=== PATIENT | female | born 2005 | race Asian ===

== ENCOUNTER 2024-10-05 13:50 | Emergency (ER) | payer OTHER, SELFPAY ==
[2024-10-05 14:13] VITALS: BP 109/62; PULSE 80; RESP 18; TEMP 37.1; O2SAT 98; BMI 19.8
--- NOTE | 2024-10-05 14:15 | CRLHL7_ITS ---
For Patients: As a result of the Cures Act, medical imaging exams and procedure reports are released immediately into your electronic medical record. You may view this report before your referring provider. If you have questions, please contact your health care provider. Indication: Trauma. Technique: Right foot 3 views. Comparison: None. Findings: Bones: No acute fracture or dislocation.. Joint spaces: Unremarkable. Soft tissues: Moderate soft tissue swelling along the dorsal aspect of the midfoot. Impression: No acute fracture or dislocation. Moderate soft tissue swelling along the dorsal aspect of the midfoot. Dictated by Clara Miller MD @ 10/05/2024 2:36:32 PM (Electronically Signed)
--- NOTE | 2024-10-05 14:54 | ED.LOWEXIN ---
HPI - Extremity Injury (Lower) General Chief Complaint: Extremity Pain/Injury, Lower Stated Complaint: Fell down stairs, R foot injury Time Seen by Provider: 10/05/24 13:53 History of Present Illness HPI Narrative: This 19-year-old female comes in with an injury to her right foot. She missed a step when going down stairs and injured her foot. She does not report any other injury. She has swelling over the dorsal aspect of the lateral part of her right foot. She does not report any pain with her ankle joint specifically and has normal range of motion of her ankle without discomfort. Related Data Home Medications ?Medication ?Instructions ?Recorded ?Confirmed No Known Home Medications 10/05/24 10/05/24 Allergies Allergy/AdvReac Type Severity Reaction Status Date / Time vancomycin AdvReac Severe Verified 10/05/24 14:13 Review of Systems Status of ROS: Reports: 10 or more systems reviewed and unremarkable except as noted in History and below Narrative: Constitutional: No fevers, no weight gain or loss. Eyes: No discharge. No vision changes. HENT: No congestion, no sore throat, no ear pain. Cardiovascular: No chest pain, no palpitations. Respiratory: No shortness of breath, no wheezes, no cough. Gastrointestinal: No abdominal pain, no vomiting, no diarrhea. Genitourinary: No dysuria, no hematuria. Musculoskeletal: Normal range of motion. Skin: No rashes, no pruritis. Neurological: No dizziness, weakness, sensory change, speech change. Endo/Heme/Allergies: No bruising or bleeding. No polydipsia. Pysch: no suicidality, no anxiety, no insomnia. All other systems reviewed and are negative. Exam Narrative: Exam Narrative: Constitutional: Well-developed, well-nourished, no acute distress. HEENT: Normocephalic, atraumatic. Neck: Normal range of motion. Nontender. Supple. Heart: Regular. No murmurs. Normal rate. Intact distal pulses. Lungs: Clear to auscultation. No chest discomfort. No wheezes, rhonchi, or rales. Abdomen: Normal bowel sounds. Nontender. No rebound tenderness. Genitalia: Deferred. Back: No midline tenderness. Normal range of motion. Extremities: Normal range of motion. Swelling and bruising over the dorsal aspect of the lateral component of her right foot near the 5th metatarsal. Skin: Intact. No rash. Warm. No erythema or pallor. Neurologic: No altered sensation. No weakness. Alert and oriented. Psychiatric: No suicidality. No anxiety or depression. No insomnia. Nursing notes and vitals signs are reviewed. Const: Vital Signs, click to edit/add: Vital Signs - 24 hr 10/05/24 14:13 Temperature 98.8 F Pulse Rate [Pulse Oximeter] 80 Respiratory Rate 18 Blood Pressure [Ri ght Upper Arm] 109/62 Pulse Oximetry 98 Oxygen Delivery Me thod Room Air Course Vital Signs Vital signs: Initial Vital Signs Temperature 98.8 F 10/05/24 14:13 Temperature Source Temporal Artery Scan 10/05/24 14:13 Pulse Rate 80 10/05/24 14:13 Respiratory Rate 18 10/05/24 14:13 Blood Pressure 109/62 10/05/24 14:13 Blood Pressure Mean 77 10/05/24 14:13 Pulse Oximetry 98 10/05/24 14:13 Oxygen Delivery Method Room Air 10/05/24 14:13 Vital Signs Temperature 98.8 F 10/05/24 14:13 Pulse Rate 80 10/05/24 14:13 Respiratory Rate 18 10/05/24 14:13 Blood Pressure 109/62 10/05/24 14:13 Pulse Oximetry 98 10/05/24 14:13 Oxygen Delivery Method Room Air 10/05/24 14:13 Temperature 98.8 F 10/05/24 14:13 Pulse Rate 80 10/05/24 14:13 Respiratory Rate 18 10/05/24 14:13 Blood Pressure 109/62 10/05/24 14:13 Pulse Oximetry 98 10/05/24 14:13 Oxygen Delivery Method Room Air 10/05/24 14:13 MDM - Extremity Injury (Lower) MDM Narrative Medical decision making narrative: This patient comes in with an injury to her right foot as described above. X-ray imaging by my review and according to radiology report shows no evidence of fracture. She does have some bruising overlying the base of the 4th and the 5th metatarsals of her right foot. Her ankle joint appears normal without any symptoms of injury. She was able to ambulate on this foot after the initial injury but as time elapsed she had more discomfort. She did receive an Shiraz wrap here and was fitted for crutches. She is encouraged to increase activity as tolerated and use [id number] medicines as needed and directed. Imaging Data XR R foot: Radiologist's impression: Swelling and bruising over the dorsal aspect of the lateral component of her right foot near the 5th metatarsal. Discharge Plan Discharge Clinical Impression: Injury of foot, right Patient Disposition: Home, Self-Care Condition: Stable Additional Instructions: use crutches as needed for ambulating. Use [id number] medicines as needed and directed also. Follow up with MD return if worsening. Prescriptions: No Action No Known Home Medications Stand Alone Forms: [employer] Info Instructions
--- OUTSIDE RECORDS SUMMARY | 2024-10-05 15:03 | XMS_ITS | Encounter Summary ---
Author Organization [facility] Address [address] [place] [address] Care Team Providers Care House Mover Name Role Phone Kimberly Cleveland M.D. Primary Care Provider [phone] Encounter Details Date Type Department Care Team (Late st Contact Info) Description 07/16/2012 Historical Ophthalmology RST OPH Carter Crowe O.D. 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 - 07/16/2012 4:15 PM CST Eye General CHIEF COMPLAINT failed school screening HISTORY OF PRESENT ILLNESS 20/50, 20/30. otherwise normal. IMPRESSION / REPORT / PLAN #1 mild refractive error srx 1 year / prn DIAGNOSIS #1 mild refractive error CDM Reports - EYEGEN Id: [id number] Status: Fnl documented in this encounter Plan of Treatment Not on file documented as of this encounter Visit Diagnoses Not on filedocumented in this encounter Care Teams House Mover Relationship Specialty Start Date End Date Kimberly Cleveland M.D. [address] [place] [address] PCP - General 08/11/20 documented as of this encounter
--- OUTSIDE RECORDS SUMMARY | 2024-10-05 15:03 | XMS_ITS | Clinical Summary ---
Author Organization [facility] Address [address] [place] [id number] Care Team Providers Care Physical Biochemist Name Role Phone Kimberly Cleveland M.D. Primary Care Provider Source Comments Patient records contain information from all sites at [facility]. For routine questions regarding patient records, call [phone] during business hours, M-F 8:00 AM - 5:00 PM Central Time. Record requests for emergency care only can be directed to [phone] at any time.[facility] Allergies Active Allergy Reactions Criticality Noted Date Comments Vancomycin Vancomycin Infusion Reaction Medium 03/14/2018 Requires premedication with Diphenhydramine and run Vancomycin over 2 hours Medications * This document contains information received from the source organization and may not represent a complete record from that organization. multivitamin tablet Take 1 tablet by mouth daily. Active ibuprofen (ADVIL,MOTRIN) 400 mg tablet Take 1 tablet (400 mg total) by mouth every 6 (six) hours as needed for moderate pain or score 4-6 of 10. 50 tablet 1 8 Active triamcinolone (KENALOG) 0.1 % cream Apply 1 application topically 2 (two) times a day as needed (eczema). 30 g 3 9 Active lactase (LACTAID ORAL) Take 1 capsule by mouth as needed. 1 pill as needed with meals that contain dairy Active adapalene (Differin) 0.1 % cream Apply 1 application topically at bedtime. Active levonorgestreL (Mirena) 20 mcg/24 hours (8 yrs) 52 mg IUD 1 Intra Uterine Device (1 each total) by intrauterine route continuously. Inserted 08/09/2022. 1 each 2 Active Active Problems Problem Noted Date Diagnosed Date Hidradenitis Suppurativa 03/13/2018 Fracture Femur Shaft Closed Subsequent Left 12/17 Fracture Femur Shaft Closed Initial Left 018 Resolved Problems Problem Noted Date Diagnosed Date Resolved Date Folliculitis 03/20/2018 03/20/2018 Immunizations Immunization Administration Dates Next Due 9vHPV 12/27/2016,06/03/2015,03/30/2015 DTaP (Daptacel) 01/25/2009 DTaP (Infanrix, [employer]) 01/12/2005,,01/14/2004,2003 HepA Pediatric/Adolescent 03/09/2022,04/07/2021 HepB, Unspecified 01/14/2004,2003 Hib, Unspecified 07/31/2004,2003 Hib-HepB 11/17/2004 IPV 01/25/2009, 5,01/14/2004,2003 Influenza, Injectable, Mdck, Preservative Free, Quadrivalent 04/19/2024 MCV4 (Menactra)(Discontinued) 03/30/2020 MCV4, Unspecified 03/30/2015 MMR 01/25/2009,07/31/2004 MenB (BEXSERO) 03/30/2020(Deferred: Parental de cision) PCV7 (discontinued) 01/12/2005,11/17/2004,2003 SARS-COV-2 (COVID-19) - MODERNA(Discontinued) 05/20/2024 SARS-COV-2 (COVID-19) - PFIZ ER (Discontinued)(12 years or older) 08/04/2021,11/17/2020,10/27/2020 SARS-COV-2 (COVID-19) - PFIZ ER Fall Seasonal (12 YEARS OR OLDER) 05/22/2023 Tdap 03/30/2015 OSIEL 01/25/2009,07/31/2004 influenza trivalent LAIV (Na jhon) (2 years through 49 years) 05/31/2009 influenza trivalent vaccine (6 months and older)(PF) 05/19/2013,2012,06/27/2011,2010,05/25/2010 influenza vaccine quad (FLUZONE/FLUARIX) (6 months and older)(PF) 05/22/2023,05/31/2022,05/17/2021,2019,05/13/2019,05/21/2018,05/20/2017,1 ,06/03/2015,05/18/2014 Family History Medical History Relation Name Comments Autism spectrum disorder Brother Relation Name Status Comments Brother Social History Tobacco Use Types Packs/Day Years Used Date Smoking Tobacco: Never Passive Smoke Exposure: Never Smokeless Tobacco: Never Alcohol Use Standard Drinks/Week Comments No 0 (1 standard drink = 0.6 oz pur e alcohol) [facility] [employer] Answer Date Recorded In the past 12 months has [employer], [employer], or water Conductor threatened to shut off services in your home? No 04/12/2024 Humiliation, Afraid, Rape, and Kick questionnair e Answer Date Recorded Within the last year, have y ou been afraid of your partner or ex-partner? No 03/08/2022 Within the last year, have y ou been humiliated or emotionally abused in other ways by your partner or ex-partner? No Within the last year, have y ou been kicked, hit, slapped, or otherwise physically hurt by your partner or ex-partner? No 03/08/2022 Within the last year, have y ou been raped or forced to have any kind of sexual activity by your partner or ex-partner? No 03/08/2022 Social Connection and Isolation Panel [NHANES] A nswer Date Recorded In a typical week, how many times do you talk on the phone with family, friends, or neighbors? Twice a week 03/08/2022 How often do you get together with friends or re latives? Once a week 03/08/2022 How often do you attend sikh or hinduism serv ices? Never 03/08/2022 Do you belong to any clubs o r organizations such as sikh groups, unions, fraternal or athletic groups, or school groups? No 03/08/2022 How often do you attend meet ings of the clubs or organizations you belong to? Never 03/08/2022 Are you , , di vorced, , never , or living with a partner? Never 03/08/2022 AUDIT-C Answer Date Recorded Q1: How often do you have a drink containing alc ohol? Never 03/08/2022 Average Number of Drinks Not on file 022 Frequency of Binge Drinking Not on file 02/17 Overall Financial Resource Strain (CARDIA) Answe r Date Recorded How hard is it for you to pa y for the very basics like food, housing, medical care, and heating? Not very hard 03/08/2022 PHQ-2 Answer Date Recorded PHQ-2 Score 1 06/02/2024 [facility] - Occupational Stress Questionnaire Answer Date Recorded Do you feel stress - tense, restless, nervous, or anxious, or unable to sleep at night because your mind is troubled all the time - these days? To some extent 03/08/2022 Exercise Vital Sign Answer Date Recorde d On average, how many days pe r week do you engage in moderate to strenuous exercise (like a brisk walk)? 5 days 04/12/2024 On average, how many minutes do you engage in exercise at this level? 90 min 04/12/2024 Hunger Vital Sign Answer Date Recorded Within the past 12 months, y ou worried that your food would run out before you got the money to buy more. Never true 04/12/20 24 Within the past 12 months, t he food you bought just didn't last and you didn't have money to get more. Never true 04/12/2024 PRAPARE - Transportation Answer Date Re corded In the past 12 months, has l ack of transportation kept you from medical appointments or from getting medications? No 03/20 In the past 12 months, has l ack of transportation kept you from meetings, work, or from getting things needed for daily living? No 04/12/2024 Depression Answer Date Recor ded PHQ-9 Total Score (max 27) 2 06/02 Nutrition Answer Date Recorded On average, how many serving s of fruits and vegetables do you eat per day (serving size is equal to 1 cup or approximately the size of a tennis ball)? 3-5 04/12/2024 Dental Answer Date Recorded Dental: Regular Dentist Yes 03/08/20 Employment Answer Date Recorded Employment status Employed and actively working without restrictions 04/12/2024 Housing Stability Answer Date Recorded What is your living situation today? I have a [facility] place to live 04/12/2024 Education Answer Date Recorded What is the highest level of school you have completed or the highest degree you have received? 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 Gender Identity Female 03/08/2022 11:22 PM CDT Sexual Orientation Straight 03/08/2022 11 :22 PM CDT Last Filed Vital Signs Vital Sign Reading Time Taken Comments Blood Pressure 109/71 06/02/2024 11:20 AM CDT Pulse 91 06/02/2024 11:20 AM CDT Temperature 37 C (98.6 F) 03/14/2018 9:00 AM CDT Respiratory Rate 16 03/14/2018 9:00 AM CDT Oxygen Saturation 99% 03/14/2018 9:00 AM CDT Inhaled Oxygen Concentration - - Weight 44.1 kg (97 lb 3.6 oz) 06/02/2024 11:20 A M CDT Height 150.4 cm (4' 11.21) 06/02/2024 11:20 AM CDT Body Mass Index 19.5 06/02/2024 11:20 AM CDT Plan of Treatment Health Maintenance Due Date Last Done Comments Cervical/Vaginal Cancer Screening 2003 Hearing Screening during Well Child Visit 2003 Hepatitis C Screening 2003 1 week Well Child Check-Up 2003 1 month Well Child Check-Up 2003 2 month Well Child Check-Up 2003 4 month Well Child Check-Up 2003 9 month Well Child Check-Up 03/01/2004 15 month Well Child Check-Up 09/01/2004 18 month Well Child Check-Up 11/30/2004 2 year Well Child Check-Up 06/01/2005 30 month Well Child Check-Up 11/30/2005 3 year Well Child Check-Up 06/01/2006 5 year Well Child Check-Up 06/01/2008 6 year Well Child Check-Up 06/01/2009 7 year Well Child Check-Up 06/01/2010 8 year Well Child Check-Up 06/01/2011 10 year Well Child Check-Up 06/01/2013 12 year Well Child Check-Up 06/01/2015 13 year Well Child Check-Up 06/01/2016 14 year Well Child Check-Up 06/01/2017 15 year Well Child Check-Up 06/01/2020 19 year Well Child Check-Up 06/01/2022 20 year Well Child Check-Up 06/01/2023 COVID-19 Vaccine ( season) 2024 05/20/2024, 05/22/2023, 05/31/2022, Additional history exists Depression Screening (Annual PHQ-2) 08/19/2024 06/02/2024 DTaP,Tdap,and Td Vaccines (7 - Td or Tdap) 03/30/2025 03/30/2015, 01/25/2009, 01/12/2005, Additional history exists TB Screening during Well Child Visit 06/02/2025 06/02/2024 Hepatitis B Vaccines Completed 11/17/2004, 01/14/2004, 2003 Pneumococcal vaccine (0-49 years) Aged Out 01/12/2005, 11/17/2004, 07/31/2004 No longer eligible based on patient's age to complete this topic IPV Vaccines Completed 01/25/2009, 12/18, 01/14/2004, Additional history exists Varicella Vaccines Completed 01/25/2009, 07/31/2004 HPV Vaccines Completed 12/27/2016, 05/19, 03/30/2015 13 year Well Child Check-Up Completed 04/16/2019 Meningococcal Vaccine Completed 03/30/2020, 015 16 year Well Child Check-Up Completed 03/09/2022 Hepatitis A Vaccines Completed 03/09/2022, 04/07/20 19 Influenza Vaccine Completed 04/19/2024, , 05/31/2022, Additional history exists 19 year Well Child Check-Up Completed 06/02/2024 Well Child Check-Up (WCC) Completed Well Child Check-Up Completed in Past Year Completed 06/02/2024 Medical Devices Implanted Type Area Beamer Operator Device Identifier Shelf Expiration Date Model / Serial / Lot Screw Cortical 4.0mm X 50mm - Chase [id number] Implanted:Qty: 1 on 12/12/2017 Hardware e.g. pins/screws/ro ds [employer] Description:Device Manufactu rer - [employer]olanda.. Device Status Text - [id number]. Nail Femoral Xl 7mm X 36cm Lt - Chase [id number] Implanted:Qty: 1 on 12/12/2017 Hardware e.g. pins/screws/ro ds [employer] Description:Device Manufactu rer - [employer]ol[employer].. Device Status Text - [id number]. Screw Cortical 4.5mm X 50mm - Chase [id number] Implanted:Qty: 1 on 12/12/2017 Hardware e.g. pins/screws/ro ds [employer] Description:Device Manufactu rer - [employer]olanda.. Device Status Text - [id number]. Intrauterine Device-08/09/2022 Implanted:Qty: 1 on 08/09/2022 by Jaimee Hernández P.AKim. Intrauterine Device Uterus / / [id number] Insurance [facility] EMPL[employer] [place] Care Teams Physical Biochemist Relationship Specialty Start Date End Date Kimberly Cleveland M.D. [facility] [place] [id number] PCP - General 08/11/20
== END 2024-10-05 15:22 | disposition home or self-care (01) ==
LOC: ED 15:01
PROVIDERS: Emergency Provider Emergency Medicine Emergency Medical Services
DX: M79.671 Pain in right foot (principal); W10.9XXA Fall (on) (from) unspecified stairs and steps, initial encounter
CPT/HCPCS: 73630; 99283; 99284